=== PATIENT | female | born 1935 | race Caucasian/White ===

== ENCOUNTER 2019-03-24 13:28 | Inpatient (IN) | payer OTHER | END 2019-03-25 13:42 | disposition home or self-care (01) | LOC: ED 13:28 → IC 16:54 → ED 13:28 → IC 18:15 → ED 13:28 → IC 16:54 → ED 13:28 → IC 03-25 13:42 → ED 13:28 → IC 16:54 | DX: J44.0 Chronic obstructive pulmonary disease with (acute) lower respiratory infection (principal); I42.9 Cardiomyopathy, unspecified; J44.1 Chronic obstructive pulmonary disease with (acute) exacerbation; I48.0 Paroxysmal atrial fibrillation; J20.9 Acute bronchitis, unspecified; E78.5 Hyperlipidemia, unspecified; I10 Essential (primary) hypertension; Z99.81 Dependence on supplemental oxygen; Z68.21 Body mass index [BMI] 21.0-21.9, adult; Z87.891 Personal history of nicotine dependence; Z79.01 Long term (current) use of anticoagulants ==